=== PATIENT | female | born 1955 | race Caucasian/White ===

== ENCOUNTER → 2019-11-10 | Emergency (ER) | payer MEDICARE, BC ==
[~2019-11-10] MED LIST: BACITRACIN15 GM TOPIC; BENADRYL25 MG ORAL; Bacitracin Oint UD TOPIC ONE; IBUPROFEN600 M1 ORAL; NKM; Tetanus/Diptheria/Pertussis IM ONE
== END | disposition home or self-care (01) ==
DX: T63.304A Toxic effect of unspecified spider venom, undetermined, initial encounter (principal); M79.604 Pain in right leg; X58.XXXA Exposure to other specified factors, initial encounter; Y92.9 Unspecified place or not applicable; Z88.0 Allergy status to penicillin; Z23 Encounter for immunization